=== PATIENT | male | born 1975 | race African-American/Black ===

== ENCOUNTER 2017-06-28 02:59 | Inpatient (IN) | payer MEDICAID ==
[2017-06-28] VITALS (13 sets, daily range): BP systolic 105–162; BP diastolic 69–108; PULSE 70–115; RESP 18–26; TEMP 96.4–98.7; O2SAT 89–100
[~2017-06-28] VITALS: Ht 175.3 cm; Wt 70.5 kg
[2017-06-28] MEDS ORDERED: IOHEXOL 350 MG/ML 10 ML VIAL (for RAD DIAG) IVCONTRAST ONE (03:00)
[2017-06-28] MEDS ORDERED: SODIUM CHLOR 0.9% 1000 ML INJ 1,000 ML IV SCH ×3 (03:24→05:32)
--- NOTE | 2017-06-28 03:28 | PD ---
HPI Chief Complaint: abdominal pain Time Seen by Provider: 03:24 Travel History International Travel<30 days: No Contact w/Intl Traveler<30days: No Traveled to known affect area: No History of Present Illness HPI 42-year-old male presents to the emergency department by private transportation for complaint of severe abdominal pain. Patient states he has history of chronic recurrent pancreatitis. Patient states that his pancreatitis is due to previous history of alcohol use. Patient is visiting from out of town and while at a family gathering did drink alcohol yesterday. Patient states he started having symptoms last evening. Patient has vomited multiple times. Patient has ongoing nausea and vomiting no report of hematemesis or coffee- ground emesis. Patient also has history of GERD and anxiety. Patient rates pain as severe. No reported exacerbating or alleviating factors. PFSH Past Medical History Narrative Medical Pancreatitis reflux esophagitis anxiety pneumothorax; chest tube thoracostomy; tobacco use marijuana use; nursing notes reviewed Social History Tobacco Use: Yes Allergies-Medications (Allergen,Severity, Reaction): Coded Allergies: ketorolac (Verified Allergy, Intermediate, Itching, 06/28/17) morphine (Verified Allergy, Intermediate, Itching, 06/28/17) Reported Meds & Prescriptions Reported Meds & Active Scripts Active Reported Zantac (Ranitidine HCl) 150 Mg Tab 150 Mg PO DAILY Zoloft (Sertraline HCl) 50 Mg Tab 50 Mg PO DAILY Seroquel (Quetiapine Fumarate) 100 Mg Tab 100 Mg PO BID Review of Systems Except as stated in HPI: all other systems reviewed are Neg General / Constitutional: No: Fever, Chills HENT: No: Congestion Cardiovascular: No: Chest Pain or Discomfort Respiratory: No: Shortness of Breath Gastrointestinal: Positive: Nausea, Vomiting, Abdominal Pain Genitourinary: No: Flank Pain Musculoskeletal: Positive: Pain (back pain), No: Myalgias, Arthralgias Skin: No Rash Neurologic: No: Weakness Psychiatric: Positive: Anxiety Endocrine: No: Heat Intolerance Hematologic/Lymphatic: No: Easy Bruising Physical Exam Narrative GENERAL: Well-developed well-nourished male in obvious discomfort without respiratory distress SKIN: Warm and dry. HEAD: Normocephalic. EYES: No scleral icterus. No injection or drainage. NECK: Supple, trachea midline. No JVD or lymphadenopathy. CARDIOVASCULAR: Increased Regular rate and rhythm without murmurs, gallops, or rubs. RESPIRATORY: Breath sounds equal bilaterally. No accessory muscle use. GASTROINTESTINAL: Abdomen soft, suprapubic and periumbilical tenderness with decreased bowel sounds, nondistended. MUSCULOSKELETAL: No cyanosis, or edema. BACK: Nontender without obvious deformity. No CVA tenderness. Data Data Last Documented VS Vital Signs Date Time Temp Pulse Resp B/P (MAP) Pulse Ox O2 Delivery O2 Flow Rate FiO2 06/28/17 04:50 83 18 151/87 (108) 100 Room Air 06/28/17 03:48 98.7 Orders Orders Complete Blood Count With Diff (06/28/17 03:24) Comprehensive Metabolic Panel (06/28/17 03:24) Lipase (06/28/17 03:24) Urinalysis - C+S If Indicated (06/28/17 03:24) Ct Abd/Pel W Iv Contrast(Rout) (06/28/17 03:24) Iv Access Insert/Monitor (06/28/17 03:24) Ecg Monitoring (06/28/17 03:24) Oximetry (06/28/17 03:24) Ondansetron Inj (Zofran Inj) (06/28/17 03:30) Sodium Chlor 0.9% 1000 Ml Inj (Ns 1000 M (06/28/17 03:24) Sodium Chloride 0.9% Flush (Ns Flush) (06/28/17 03:30) Electrocardiogram (06/28/17 03:24) Chest, Single Ap (06/28/17 03:24) Hydromorphone Pf Inj (Dilaudid Pf Inj) (06/28/17 03:30) Lactic Acid (06/28/17 03:28) Blood Culture (06/28/17 03:28) Iohexol 350 Inj (Omnipaque 350 Inj) (06/28/17 03:00) Piperacil-Tazo 3.375 Gm Premix (Zosyn 3. (06/28/17 04:45) Sodium Chlor 0.9% 1000 Ml Inj (Ns 1000 M (06/28/17 04:45) Drug Screen, Random Urine (06/28/17 04:59) Admit Order (Ed Use Only) (06/28/17 ) ^ Saline Lock (06/28/17 05:09) Resp Oxygen Randy C Titrat 1-4 L (06/28/17 ) Notify Dr: Other (06/28/17 05:09) Sodium Chloride 0.9% Flush (Ns Flush) (06/28/17 09:00) Sodium Chloride 0.9% Flush (Ns Flush) (06/28/17 05:15) Labs Laboratory Tests Test 06/28/17 03:35 06/28/17 05:10 White Blood Count 29.1 TH/MM3 Red Blood Count 4.02 MIL/MM3 Hemoglobin 13.4 GM/DL Hematocrit 40.3 % Mean Corpuscular Volume 100.2 FL Mean Corpuscular Hemoglobin 33.5 PG Mean Corpuscular Hemoglobin Concent 33.4 % Red Cell Distribution Width 13.4 % Platelet Count 501 TH/MM3 Mean Platelet Volume 7.5 FL Neutrophils (%) (Auto) 94.5 % Lymphocytes (%) (Auto) 4.4 % Monocytes (%) (Auto) 0.6 % Eosinophils (%) (Auto) 0.0 % Basophils (%) (Auto) 0.5 % Neutrophils # (Auto) 27.5 TH/MM3 Lymphocytes # (Auto) 1.3 TH/MM3 Monocytes # (Auto) 0.2 TH/MM3 Eosinophils # (Auto) 0.0 TH/MM3 Basophils # (Auto) 0.1 TH/MM3 CBC Comment DIFF FINAL Differential Comment Blood Urea Nitrogen 12 MG/DL Creatinine 1.00 MG/DL Random Glucose 186 MG/DL Total Protein 8.7 GM/DL Albumin 4.0 GM/DL Calcium Level 9.9 MG/DL Alkaline Phosphatase 132 U/L Aspartate Amino Transf (AST/SGOT) 20 U/L Alanine Aminotransferase (ALT/SGPT) 26 U/L Total Bilirubin 0.7 MG/DL Sodium Level 138 MEQ/L Potassium Level 3.9 MEQ/L Chloride Level 102 MEQ/L Carbon Dioxide Level 23.4 MEQ/L Anion Gap 13 MEQ/L Estimat Glomerular Filtration Rate 100 ML/MIN Lactic Acid Level 2.8 mmol/L Lipase 147 U/L Urine Color YELLOW Urine Turbidity CLEAR Urine pH 7.0 Urine Specific [place] GREATER THAN 1.035 Urine Protein TRACE mg/dL Urine Glucose (UA) NEG mg/dL Urine Ketones 40 mg/dL Urine Occult Blood NEG Urine Nitrite NEG Urine Bilirubin NEG Urine Leukocyte Esterase NEG Urine WBC 0-2 /hpf Urine Squamous Epithelial Cells 0-5 /hpf Microscopic Urinalysis Comment CULT NOT INDICATED Urine Opiates Screen NEG Urine Barbiturates Screen NEG Urine Amphetamines Screen NEG Urine Benzodiazepines Screen NEG Urine Cocaine Screen NEG Urine Cannabinoids Screen POS MDM Medical Decision Making Medical Screen Exam Complete: Yes Emergency Medical Condition: Yes Medical Record Reviewed: Yes Interpretation(s) Lipase: 147, wnl Lactic acid 2.8, elevated Last Impressions Chest X-Ray 06/28/17 0324 Signed Impressions: Service Date/Time: Wednesday, June 28, 2017 03:45 - CONCLUSION: Normal examination. Jacob Meeks MD CBC & BMP Diagram 06/28/17 03:35 Total Protein 8.7 H, Albumin 4.0, Calcium Level 9.9, Alkaline Phosphatase 132 H , Aspartate Amino Transf (AST/SGOT) 20, Alanine Aminotransferase (ALT/SGPT) 26, Total Bilirubin 0.7 Vital Signs Date Time Temp Pulse Resp B/P (MAP) Pulse Ox O2 Delivery O2 Flow Rate FiO2 06/28/17 04:50 83 18 151/87 (108) 100 Room Air 06/28/17 04:04 16 06/28/17 03:57 76 18 162/101 (121) 95 Room Air 06/28/17 03:50 98 Room Air 06/28/17 03:48 98.7 90 22 147/108 (121) 98 Room Air 06/28/17 03:15 98.4 115 26 119/98 (105) 98 CT ABD/PEL: CONCLUSION: Normal examination. Jacob Meeks MD on June 28, 2017 at 4:54 Board Certified Radiologist. This report was verified electronically. Differential Diagnosis Abdominal pain, pancreatitis, gastritis, biliary colic, viscus perforation, pneumomediastinum Narrative Course IV access obtained specimens collected and sent for resulting patient administered Dilaudid 1 mg IV and Zofran 4 mg IV along with normal saline bolus Patient sleeping Patient to get a CT complaining of needing more pain medication; total white cell count is noted to be 29,000 patient presents with increased heart rate increased respiratory rate marked leukocytosis and elevated lactic acid with abdominal pain meets sepsis criteria and Zosyn 3.[address] abdomen and pelvis read as no acute process per reading radiologist Patient's case discussed with on-call [facility] , meets sepsis criteria Sepsis Criteria SIRS Criteria (2 or more): Heart rate over 90, RR > 20 or PaCO2 < 32, WBC > 44463, < 4000 or > 10% bands Sepsis Criteria (SIRS+source): Infect source susp/known (GI) Severe Sepsis (+one): Lactate >2 Physician Communication Physician Communication call placed to [facility] service Diagnosis Primary Impression: Abdominal pain Admitting Information Admitting Physician Requests: Admit Lizzette Malik MD Jun 28, 2017 03:28
[2017-06-28] MEDS ORDERED: ONDANSETRON HCL 4 MG/2 ML VIAL IVP ONE (03:30)
[2017-06-28] MEDS ORDERED: SODIUM CHLORIDE 0.9% FLUSH 10 ML FLUSH IV FLUSH PRN ×2 (03:30→05:45)
[2017-06-28] MEDS ORDERED: HYDROmorphone HCL PF 1 MG/ML VIAL IV PUSH ONE ×2 (03:30→05:15)
[2017-06-28 03:57] LABS: CHLORIDE 102 MEQ/L (98-107); POTASSIUM 3.9 MEQ/L (3.5-5.1); SODIUM (NA) 138 MEQ/L (136-145)
[2017-06-28 04:01] LABS: ANION GAP 13 MEQ/L (5-15); AUTOMATED NEUTROPHIL # 27.5 TH/MM3 (1.8-7.7); BASOPHIL # 0.1 TH/MM3 (0-0.2); BASOPHIL % 0.5 % (0.0-2.0); BICARBONATE 23.4 MEQ/L (21.0-32.0); BLOOD UREA NITROGEN 12 MG/DL (7-18); HEMATOCRIT 40.3 % (39.0-51.0); LYMPH % 4.4 % (9.0-44.0); LYMPHOCYTE # 1.3 TH/MM3 (1.0-4.8); MEAN CELL VOLUME 100.2 FL (80.0-100.0); MEAN CORPUSCULAR HEMOGLOBIN 33.5 PG (27.0-34.0); MEAN CORPUSCULAR HGB CONC 33.4 % (32.0-36.0); MONO % 0.6 % (0.0-8.0); NEUT % 94.5 % (16.0-70.0); PLATELET COUNT 501 TH/MM3 (150-450); RED BLOOD COUNT 4.02 MIL/MM3 (4.50-5.90); RED CELL DISTRIBUTION WIDTH 13.4 % (11.6-17.2); WHITE BLOOD COUNT 29.1 TH/MM3 (4.0-11.0)
[2017-06-28 04:02] LABS: HEMO FLAGS DIFF FINAL
[2017-06-28 04:04] LABS: ALT (GPT) 26 U/L (12-78); AST (GOT) 20 U/L (15-37); GLOMERULAR FILTRATION RATE 100 ML/MIN (>89)
--- NOTE | 2017-06-28 04:05 | RADRPT ---
EXAM DATE/TIME: 06/28/2017 03:45 [facility] COMPARISON: No previous studies available for comparison. INDICATIONS : Chest pain. MEDICAL HISTORY : Pancreatitis. SURGICAL HISTORY : None. ENCOUNTER: Initial ACUITY: 1 day PAIN SCORE: 7/10 LOCATION: Bilateral chest FINDINGS: A single view of the chest demonstrates the lungs to be symmetrically aerated without evidence of mas s, infiltrate or effusion. The cardiomediastinal contours are unremarkable. Osseous structures are intact. CONCLUSION: Normal examination. Jacob Meeks MD on June 28, 2017 at 4:03 Board Certified Radiologist. This report was verified electronically.
[2017-06-28 04:06] LABS: TOTAL BILIRUBIN ADULT 0.7 MG/DL (0.2-1.0)
[2017-06-28 04:07] LABS: ALKALINE PHOSPHATASE 132 U/L (45-117)
[2017-06-28] MEDS ORDERED: SODIUM CHLOR 0.9% 1000 ML INJ 1,000 ML IV ONE (04:45)
[2017-06-28] MEDS ORDERED: PIPERACIL-TAZO 3.375 GM PREMIX 50 ML IV ONE (04:45)
--- NOTE | 2017-06-28 04:55 | RADRPT ---
EXAM DATE/TIME: 06/28/2017 04:28 [facility] COMPARISON: No previous studies available for comparison. INDICATIONS : Pancreatitis IV CONTRAST: 94 cc Omnipaque 350 (iohexol) IV ORAL CONTRAST: No oral contrast ingested. RADIATION DOSE: 6.29 CTDIvol (mGy) MEDICAL HISTORY : Pancreatitis. Gastroesophageal reflux disease. SURGICAL HISTORY : lung for collapse ENCOUNTER: Initial ACUITY: 1 day PAIN SCALE: 9/10 LOCATION: Bilateral anterior abdomen TECHNIQUE: Volumetric scanning of the abdomen and pelvis was performed. Using automated exposure control and ad justment of the mA and/or kV according to patient size, radiation dose was kept as low as reasonably achievable to obtain optimal diagnostic quality images. DICOM format image data is available electro nically for review and comparison. FINDINGS: LOWER LUNGS: The visualized lower lungs are clear. LIVER: Homogeneous density without lesion. There is no dilation of the biliary tree. No calcified gallston es. SPLEEN: Normal size without lesion. PANCREAS: Within normal limits. KIDNEYS: Normal in size and shape. There is no mass, stone or hydronephrosis. ADRENAL GLANDS: Within normal limits. VASCULAR: There is no aortic aneurysm. BOWEL/MESENTERY: The stomach, small bowel, and colon demonstrate no acute abnormality. There is no free intraperitone al air or fluid. ABDOMINAL WALL: Within normal limits. RETROPERITONEUM: There is no lymphadenopathy. BLADDER: No wall thickening or mass. REPRODUCTIVE: Within normal limits. INGUINAL: There is no lymphadenopathy or hernia. MUSCULOSKELETAL: Within normal limits for patient age. CONCLUSION: Normal examination. Jacob Meeks MD on June 28, 2017 at 4:54 Board Certified Radiologist. This report was verified electronically.
[2017-06-28] MEDS ORDERED: ZOLO50TA PO (05:08)
[2017-06-28] MEDS ORDERED: SERO100T PO (05:08)
[2017-06-28] MEDS ORDERED: ZANT150T2 PO (05:09)
[2017-06-28] MEDS ORDERED: PANTOPRAZOLE SODIUM 40 MG VIAL IV PUSH ONE (05:15)
[2017-06-28] MEDS ORDERED: SODIUM CHLORIDE 0.9% FLUSH 10 ML FLUSH IVF PRN (05:15)
[2017-06-28 05:22] LABS: BLOOD, URINE NEG (NEG); GLUCOSE,URINE NEG (NEG); KETONE, URINE 40 mg/dL (NEG); NITRITE,URINE NEG (NEG)
[2017-06-28 05:28] LABS: URINE COLOR YELLOW (YELLW/STRAW)
[2017-06-28 05:29] LABS: COMMENT (UR) CULT NOT INDICATED; CULTURE IF INDICATED CULT NOT INDICATED; SQUAMOUS EPITHELIAL CELL URINE 0-5 /hpf (0-5); WBC, URINE 0-2 /hpf (0-5)
[2017-06-28] MEDS ORDERED: ONDANSETRON HCL 4 MG/2 ML VIAL IV PUSH ONE (05:30)
[2017-06-28] MEDS ORDERED: MAGNESIUM HYDROXIDE SUSP 30 ML CUP PO PRN (05:45)
[2017-06-28] MEDS ORDERED: LACTULOSE SYRUP 20 GM/30 ML CUP PO PRN (05:45)
[2017-06-28] MEDS ORDERED: Vancomycin Consult Pharmacy 1 EA OTHER SCH (05:45)
[2017-06-28] MEDS ORDERED: ACETAMINOPHEN 325 MG TAB PO PRN (05:45)
[2017-06-28] MEDS ORDERED: METOCLOPRAMIDE HCL 10 MG/2 ML VIAL IV PUSH ONE (05:45)
[2017-06-28] MEDS ORDERED: BISACODYL 10 MG SUPP RECTAL PRN (05:45)
[2017-06-28] MEDS ORDERED: SENNOSIDES 8.6 MG TAB PO PRN (05:45)
[2017-06-28] MEDS ORDERED: VANCOMYCIN INJ 1,400 MG in SODIUM CHLORID 0.9% 500 ML INJ 500 ML IV ONE (06:00)
[2017-06-28] MEDS ORDERED: SERTRALINE HCL 50 MG TAB PO SCH (09:00)
[2017-06-28] MEDS: DOCUSATE SODIUM 50 MG/SENNA 8.6 MG TAB PO SCH ×2 (09:00→20:11)
[2017-06-28] MEDS ORDERED: FAMOTIDINE 20 MG TAB PO SCH (09:00)
[2017-06-28] MEDS ORDERED: SODIUM CHLORIDE 0.9% FLUSH 10 ML FLUSH IV FLUSH SCH (09:00)
[2017-06-28] MEDS: NS + KCL 20 MEQ INJ 1,000 ML IV SCH ×2 (09:55→20:10)
[2017-06-28] MEDS: HYDROmorphone HCL PF 1 MG/ML VIAL IV PRN ×4 (09:56→18:31)
[2017-06-28] MEDS: SODIUM CHLORIDE 0.9% FLUSH 10 ML FLUSH IV FLUSH SCH ×2 (09:56→20:11)
[2017-06-28] MEDS: ONDANSETRON HCL 4 MG/2 ML VIAL IVP PRN ×2 (09:58→18:31)
[2017-06-28] MEDS: ACETAMINOPHEN/HYDROcodone 325 MG/5 MG TAB PO PRN ×3 (12:19→21:26)
[2017-06-28] MEDS: QUEtiapine FUMARATE 100 MG TAB PO SCH ×2 (12:26→20:11)
[2017-06-28] MEDS ORDERED: GLUCAGON 1 MG/ML VIAL OTHER PRN (13:45)
[2017-06-28] MEDS ORDERED: DEXTROSE 50% IN WATER 50 ML VIAL(D50) IV PRN (13:45)
--- NOTE | 2017-06-28 14:18 | HHI.HP ---
[facility] [place] [facility]-Staff Admission Diagnosis abdominal pain; sepsis Diagnoses: Chief Complaint: Abdominal pain Travel History International Travel<30 Days: No Contact w/Intl Traveler <30 Da: No Traveled to Known Affected Are: No History of Present Illness This is a 42-year-old male with history of chronic alcoholic pancreatitis, GERD and anxiety. Patient presented to the emergency room complaining of acute severe sharp epigastric pain radiating to mid to lower back associated with nausea, vomiting and 3 loose stools 8 hours after imbibing alcohol last night. States his symptoms are similar to his previous episodes. He has been sober until last night when he attended the birthday alliance party of his [id number]. No fever, chills, cough and UTI symptoms. Denies sick contacts, well water and seafood ingestion. States his abdominal pain is still severe with partial relief from pain medicines. He has been started on IV vancomycin and cefepime because of elevated lactic acid and leukocytosis. Contrast CT of the abdomen pelvis showed no acute abnormality. Discussed with on-call radiology no evidence of vascular stenosis. All other systems reviewed negative Review of Systems Except as stated in HPI: all other systems reviewed are Neg Past Family Social History Past Medical History As previously mentioned Past Surgical History Chest tube insertion Reported Medications Zantac (Ranitidine HCl) 150 Mg Tab 150 Mg PO DAILY Zoloft (Sertraline HCl) 50 Mg Tab 50 Mg PO DAILY Seroquel (Quetiapine Fumarate) 100 Mg Tab 100 Mg PO BID Allergies: Coded Allergies: ketorolac (Verified Allergy, Intermediate, Itching, 06/28/17) morphine (Verified Allergy, Intermediate, Itching, 06/28/17) Family History No CAD or cancer Social History Has been sober. Smokes a pack per day Physical Exam Vital Signs Vital Signs Date Time Temp Pulse Resp B/P (MAP) Pulse Ox O2 Delivery O2 Flow Rate FiO2 06/28/17 10:26 20 06/28/17 08:00 97.6 83 22 117/72 (87) 96 06/28/17 06:15 97.5 82 18 105/77 (86) 98 06/28/17 06:05 06/28/17 05:50 98.4 82 18 115/73 (87) 95 Room Air 06/28/17 05:40 16 06/28/17 05:26 98 21 06/28/17 05:20 84 18 136/90 (105) 96 Room Air 06/28/17 04:50 83 18 151/87 (108) 100 Room Air 06/28/17 04:04 16 06/28/17 03:57 76 18 162/101 (121) 95 Room Air 06/28/17 03:50 98 Room Air 06/28/17 03:48 98.7 90 22 147/108 (121) 98 Room Air 06/28/17 03:15 98.4 115 26 119/98 (105) 98 Physical Exam GENERAL: This is a well-nourished, well-developed patient, in distress due to pain SKIN: No rashes, ecchymoses or lesions. Cool and dry. HEAD: Atraumatic. Normocephalic. No temporal or scalp tenderness. EYES: Pupils equal round and reactive. Extraocular motions intact. No scleral icterus. No injection or drainage. ENT: Nose without bleeding, purulent drainage or septal hematoma. Throat without erythema, tonsillar hypertrophy or exudate. Uvula midline. Airway patent. NECK: Trachea midline. No JVD or lymphadenopathy. Supple, nontender, no meningeal signs. CARDIOVASCULAR: Regular rate and rhythm without murmurs, gallops, or rubs. RESPIRATORY: Clear to auscultation. Breath sounds equal bilaterally. No wheezes , rales, or rhonchi. GASTROINTESTINAL: Abdomen soft, tender epigastric, nondistended. No guarding. MUSCULOSKELETAL: Extremities without clubbing, cyanosis, or edema. No joint tenderness, effusion, or edema noted. No calf tenderness. Negative Homans sign bilaterally. NEUROLOGICAL: Awake and alert. Cranial nerves II through XII intact. Motor and sensory grossly within normal limits. Five out of 5 muscle strength in all muscle groups. Normal speech. Laboratory Laboratory Tests Test 06/28/17 03:35 06/28/17 05:10 06/28/17 07:00 White Blood Count 29.1 Red Blood Count 4.02 Hemoglobin 13.4 Hematocrit 40.3 Mean Corpuscular Volume 100.2 Mean Corpuscular Hemoglobin 33.5 Mean Corpuscular Hemoglobin Concent 33.4 Red Cell Distribution Width 13.4 Platelet Count 501 Mean Platelet Volume 7.5 Neutrophils (%) (Auto) 94.5 Lymphocytes (%) (Auto) 4.4 Monocytes (%) (Auto) 0.6 Eosinophils (%) (Auto) 0.0 Basophils (%) (Auto) 0.5 Neutrophils # (Auto) 27.5 Lymphocytes # (Auto) 1.3 Monocytes # (Auto) 0.2 Eosinophils # (Auto) 0.0 Basophils # (Auto) 0.1 CBC Comment DIFF FINAL Differential Comment Blood Urea Nitrogen 12 Creatinine 1.00 Random Glucose 186 Total Protein 8.7 Albumin 4.0 Calcium Level 9.9 Alkaline Phosphatase 132 Aspartate Amino Transf (AST/SGOT) 20 Alanine Aminotransferase (ALT/SGPT) 26 Total Bilirubin 0.7 Sodium Level 138 Potassium Level 3.9 Chloride Level 102 Carbon Dioxide Level 23.4 Anion Gap 13 Estimat Glomerular Filtration Rate 100 Lactic Acid Level 2.8 1.8 Lipase 147 Urine Color YELLOW Urine Turbidity CLEAR Urine pH 7.0 Urine Specific [place] GREATER THAN 1.035 Urine Protein TRACE Urine Glucose (UA) NEG Urine Ketones 40 Urine Occult Blood NEG Urine Nitrite NEG Urine Bilirubin NEG Urine Leukocyte Esterase NEG Urine WBC 0-2 Urine Squamous Epithelial Cells 0-5 Microscopic Urinalysis Comment CULT NOT INDICATED Urine Opiates Screen NEG Urine Barbiturates Screen NEG Urine Amphetamines Screen NEG Urine Benzodiazepines Screen NEG Urine Cocaine Screen NEG Urine Cannabinoids Screen POS Date/Time Source Procedure Growth Status 06/28/17 03:40 Blood Peripheral Aerobic Blood Culture Pending Received 06/28/17 03:40 Blood Peripheral Anaerobic Blood Culture Pending Received Result Diagram: 06/28/17 0335 06/28/17334 Imaging EKG tracing in reviewed by me with sinus rhythm LVH by criteria nonspecific T changes Chest x-ray image interpreted by me with no acute cardiopulmonary disease Last Impressions Chest X-Ray 06/28/17323 Signed Impressions: Service Date/Time: Wednesday, June 28, 2017 03:45 - CONCLUSION: Normal examination. Jacob Meeks MD Abdomen/Pelvis CT 06/28/17323 Signed Impressions: Service Date/Time: Wednesday, June 28, 2017 04:28 - CONCLUSION: Normal examination. MD Russ Peng VTE Risk Assessment Russ VTE Risk Assessment: Mod/High Risk (score >= 2) Caprini Risk Assessment Model Point Value = 1 Point Value = 2 Point Value = 3 Point Value = 5 Age 41-60 Minor surgery BMI > 25 kg/m2 Swollen legs Varicose veins or History of unexplained or recurrent spontaneous Oral contraceptives or hormone replacement Sepsis (< 1 month) Serious lung disease, including pneumonia (< 1 month) Abnormal pulmonary function Acute myocardial infarction Congestive heart failure (< 1 month) History of inflammatory bowel disease Medical patient at bed rest Age 61-74 Arthroscopic surgery Major open surgery (> 45 min) Laparoscopic surgery (> 45 min) Malignancy Confined to bed (> 72 hours) Immobilizing plaster cast Central venous access Age >= 75 History of VTE Family history of VTE Factor V Leiden Prothrombin [id number] Lupus anticoagulant Anticardiolipin antibodies Elevated serum homocysteine Heparin-induced thrombocytopenia Other congenital or acquired thrombophilia Stroke (< 1 month) Elective arthroplasty Hip, pelvis, or leg fracture Acute spinal cord injury (< 1 month) Prophylaxis Regimen Total Risk Factor Score Risk Level Prophylaxis Regimen 0-1 Low Early ambulation 2 Moderate Order ONE of the following: *Sequential Compression Device (SCD) *Heparin 5000 units SQ BID 3-4 Higher Order ONE of the following medications: *Heparin 5000 units SQ TID *Enoxaparin/Lovenox 40 mg SQ daily (WT < 150 kg, CrCl > 30 mL/min) *Enoxaparin/Lovenox 30 mg SQ daily (WT < 150 kg, CrCl > 10-29 mL/min) *Enoxaparin/Lovenox 30 mg SQ BID (WT < 150 kg, CrCl > 30 mL/min) AND/OR *Sequential Compression Device (SCD) 5 or more Highest Order ONE of the following medications: *Heparin 5000 units SQ TID (Preferred with Epidurals) *Enoxaparin/Lovenox 40 mg SQ daily (WT < 150 kg, CrCl > 30 mL/min) *Enoxaparin/Lovenox 30 mg SQ daily (WT < 150 kg, CrCl > 10-29 mL/min) *Enoxaparin/Lovenox 30 mg SQ BID (WT < 150 kg, CrCl > 30 mL/min) AND *Sequential Compression Device (SCD) Assessment and Plan Problem List: (1) Abdominal pain ICD Code: R10.9 - Unspecified abdominal pain Status: Acute Assessment and Plan This is a 42-year-old male with history of chronic alcoholic pancreatitis, GERD and anxiety. Patient presented to the emergency room complaining of acute severe sharp epigastric pain radiating to mid to lower back associated with nausea, vomiting and 3 loose stools 8 hours after imbibing alcohol last night. Severe abdominal pain with nausea and vomiting with history of chronic alcoholic pancreatitis. Contrast CT without acute findings. No vascular stenosis per radiology. Lipase not elevated likely 2/2 chronic pancreatitis. Continue with supportive treatment with IV hydration, GI prophylaxis and pain management with Lortab and IV Dilaudid. Repeat labs today. Start liquid diet. SIRS with elevated lactic acid likely secondary to above. Consider discontinuing IV vancomycin and cefepime A cultures are negative Hyperglycemia. Monitor fingersticks with sliding scale coverage DVT prophylaxis with SCD Discussed Condition With Patient Brennan Friend MD Jun 28, 2017 14:18
[2017-06-28 15:17] LABS: AUTOMATED NEUTROPHIL # 14.4 TH/MM3 (1.8-7.7); BASOPHIL # 0.7 TH/MM3 (0-0.2); BASOPHIL % 3.4 % (0.0-2.0); EOSINOPHIL % 0.1 % (0.0-4.0); HEMATOCRIT 33.4 % (39.0-51.0); LYMPH % 18.7 % (9.0-44.0); LYMPHOCYTE # 3.7 TH/MM3 (1.0-4.8); MEAN CELL VOLUME 100.1 FL (80.0-100.0); MEAN CORPUSCULAR HEMOGLOBIN 32.9 PG (27.0-34.0); MEAN CORPUSCULAR HGB CONC 32.9 % (32.0-36.0); MONO % 5.3 % (0.0-8.0); NEUT % 72.5 % (16.0-70.0); PLATELET COUNT 399 TH/MM3 (150-450); RED BLOOD COUNT 3.33 MIL/MM3 (4.50-5.90); RED CELL DISTRIBUTION WIDTH 12.7 % (11.6-17.2); WHITE BLOOD COUNT 19.8 TH/MM3 (4.0-11.0)
[2017-06-28 15:19] LABS: CHLORIDE 105 MEQ/L (98-107); HEMO FLAGS DIFF FINAL; POTASSIUM 3.5 MEQ/L (3.5-5.1); SODIUM (NA) 139 MEQ/L (136-145)
[2017-06-28 15:33] LABS: ALKALINE PHOSPHATASE 96 U/L (45-117); ALT (GPT) 19 U/L (12-78); ANION GAP 9 MEQ/L (5-15); AST (GOT) 18 U/L (15-37); BICARBONATE 25.2 MEQ/L (21.0-32.0); BLOOD UREA NITROGEN 7 MG/DL (7-18); GLOMERULAR FILTRATION RATE 177 ML/MIN (>89); TOTAL BILIRUBIN ADULT 0.7 MG/DL (0.2-1.0)
--- NOTE | 2017-06-28 15:50 | EKG ---
Date Performed: 06/28/2017 Time Performed: 04:12:02 PTAGE: 42 years EKG: Sinus rhythm MINIMAL VOLTAGE CRITERIA FOR LVH, CONSIDER NORMAL VARIANT NONSPECIFIC T-WAVE ABNORMALITY BORDERLINE ECG NO PREVIOUS TRACING DOCTOR: Rik Hadley Interpretating Date/Time 06/28/2017 15:48:30
[2017-06-28] MEDS ORDERED: PHARMACY ORDERED LAB ONE (17:45)
[2017-06-28] MEDS ORDERED: VANCOMYCIN INJ 1,250 MG in SODIUM CHLOR 0.9% 250 ML INJ 250 ML IV SCH (18:00)
[2017-06-28] MEDS ORDERED: CEFEPIME INJ 1,000 MG in SODIUM CHLORIDE 0.9% INJ 100 ML IV SCH (18:00)
== END 2017-06-28 21:44 | disposition left against medical advice (07) | DRG 392 ==
LOC: PHEFT 02:59 → PHEDA 05:11 → PH3B 06:07
PROVIDERS: ADMIT Internal Medicine; ATTEND Internal Medicine
DX: R10.9 Unspecified abdominal pain (principal); R65.10 Systemic inflammatory response syndrome (SIRS) of non-infectious origin without acute organ dysfunction; K86.0 Alcohol-induced chronic pancreatitis; F41.9 Anxiety disorder, unspecified; F17.210 Nicotine dependence, cigarettes, uncomplicated; K21.9 Gastro-esophageal reflux disease without esophagitis; R73.9 Hyperglycemia, unspecified
CPT/HCPCS: 71010; 74177; 80053; 80307; 81001; 83605; 83690; 85025; 87040; 93005; 96361; 96365; 96375; C9113; J0692; J1170; J2405; J2543; J2765; J3370; J3480; J7030; J7040; J7050; Q9967